=== PATIENT | male | born 1980 | race Caucasian/White ===

== ENCOUNTER 2018-06-14 08:56 | Outpatient (CLI) | payer OTHER ==
--- NOTE | 2018-06-14 10:21 | RAD ---
RIGHT FOOT THREE VIEWS: History: Arthritis. Comparison: None. FINDINGS: There is no acute fracture or malalignment. Soft tissues are mildly swollen. No significant degenerat anjel disease. IMPRESSION: Normal exam. POS: [facility]
== END 2018-06-14 08:57 | disposition home or self-care (01) ==
LOC: BICRAD 08:56
PROVIDERS: ATTEND Orthopaedic Surgery
DX: M19.071 Primary osteoarthritis, right ankle and foot (principal)

== ENCOUNTER 2019-06-07 20:30 | Outpatient (CLI) | payer OTHER | END 2019-06-07 20:31 | disposition home or self-care (01) | LOC: SLEEPLAB 20:30 | PROVIDERS: ATTEND Internal Medicine Critical Care Medicine | DX: G47.33 Obstructive sleep apnea (adult) (pediatric) (principal); R53.83 Other fatigue; I10 Essential (primary) hypertension | CPT/HCPCS: 95810 ==

== ENCOUNTER 2019-08-18 22:19 | Emergency (ER) | payer OTHER ==
[2019-08-18 23:41] LABS: HIV (1/2) Antibody/Antigen Non-Reactive (NonReactive); HIV 1/2 INDEX 0.15 S/CO (<1.00); Hep C IgG Ab Non-Reactive (NonReactive); Hep C Index 0.15 S/CO (0-0.79)
[2019-08-19 00:19] LABS: HBSAB Concentration 3143.54 mIU/mL; Hep B Surf AB Reactive (NonReactive)
== END 2019-08-18 23:15 | disposition home or self-care (01) ==
LOC: ERS 22:19
DX: Z77.21 Contact with and (suspected) exposure to potentially hazardous body fluids (principal); E78.5 Hyperlipidemia, unspecified; E78.00 Pure hypercholesterolemia, unspecified
CPT/HCPCS: 36415; 86706; 86803; 87389; 99283

== ENCOUNTER 2020-11-10 03:47 | Emergency (ER) | payer BC, OTHER ==
[2020-11-10 05:29] LABS: HIV (1/2) Antibody/Antigen Non-Reactive (NonReactive); HIV 1/2 INDEX 0.22 S/CO (<1.00); Hep C IgG Ab Non-Reactive (NonReactive)
[2020-11-10 06:38] LABS: Hep B Surf AB Reactive (NonReactive)
== END 2020-11-10 04:51 | disposition home or self-care (01) ==
LOC: ERS 03:47
DX: Z77.21 Contact with and (suspected) exposure to potentially hazardous body fluids (principal); E78.5 Hyperlipidemia, unspecified; E78.00 Pure hypercholesterolemia, unspecified
CPT/HCPCS: 36415; 86706; 86803; 87389; 99283

== ENCOUNTER 2023-03-25 08:31 | Outpatient (CLI) | payer OTHER | END 2023-03-25 08:32 | disposition home or self-care (01) | LOC: BICMRI 08:31 | PROVIDERS: ATTEND Nurse Practitioner Family | DX: S49.92XD Unspecified injury of left shoulder and upper arm, subsequent encounter (principal); M75.112 Incomplete rotator cuff tear or rupture of left shoulder, not specified as traumatic; M19.012 Primary osteoarthritis, left shoulder; S46.212D Strain of muscle, fascia and tendon of other parts of biceps, left arm, subsequent encounter ==

== ENCOUNTER 2023-05-05 08:04 | Outpatient (CLI) | payer BC ==
[2023-05-05 09:18] LABS: #Basophils 0.1 10x3/uL (0.0-0.2); #Eosinphils 0.4 10x3/uL (0.0-0.5); #Monocytes 0.6 10x3/uL (0.0-1.1); #Neutrophils 3.8 10x3/uL (1.5-8.4); %Eosinophils 4.8 % (0.0-6.0); %Lymphocytes 32.7 % (18.0-47.0); %Monocytes 8.6 % (0.0-10.0); %Neutrophils 52.5 % (40.0-75.0); Hematocrit 44.8 % (38.8-50.0); Hemoglobin 15.3 g/dL (13.5-17.5); Mean Corpuscular HGB CONC 34.2 g/dL (32.0-36.0); Mean Corpuscular Hemoglobin 28.5 pg (27.0-33.0); Mean Corpuscular Volume 83.4 fl (81.2-95.1); Mean Platelet Volume 9.8 fl (7.4-10.4); Platelet Count 232 10x3/uL (150-450); RBC Distribution Width 12.7 % (11.5-14.5); Red Blood Cell (RBC) Count 5.37 10x6/uL (4.32-5.72); White Blood Cell (WBC) Count 7.3 10x3/uL (3.5-10.5)
[2023-05-05 09:31] LABS: Anion Gap 12 mmol/L (10-20); BUN (Urea Nitrogen) 13 mg/dL (8.9-20.6); Calc. Creatinine Clearance 0 mL/min (70-130); Calcium 9.8 mg/dL (7.8-10.44); Carbon Dioxide 26 mmol/L (22-29); Chloride 105 mmol/L (98-107); Estimated GFR 93; Glucose 119 mg/dL (70-105); Potassium 4.1 mmol/L (3.5-5.1); Sodium 139 mmol/L (136-145)
== END 2023-05-05 08:05 | disposition home or self-care (01) ==
LOC: LABBT 08:04
PROVIDERS: ATTEND Orthopaedic Surgery
DX: Z01.812 Encounter for preprocedural laboratory examination (principal); S43.432A Superior glenoid labrum lesion of left shoulder, initial encounter
CPT/HCPCS: 80048; 85025

== ENCOUNTER 2023-05-08 09:09 | Day surgery (SDC) | payer OTHER ==
[2023-05-05 08:42] VITALS: BMI 28.1
[2023-05-08] MEDS ORDERED: fentaNYL 50 mcg/mL 1 mL Vial ONE ×2 (10:50→12:45)
[2023-05-08] MEDS ORDERED: EPINEPHrine 1 MG/ML AMP ONE ×2 (10:50→11:56)
[2023-05-08] MEDS ORDERED: Lidocaine 1% (PF) 30 ML VIAL ONE (10:50)
[2023-05-08] MEDS ORDERED: Midazolam HCl 2 mg/2 ml Vial ONE (10:50)
[2023-05-08] MEDS ORDERED: Ropivacaine 0.5% HCl/PF (150 MG/30 ML VIAL) ONE (10:50)
[2023-05-08] MEDS ORDERED: Ropivacaine 0.2% HCl/PF 20 ML ONE (10:50)
[2023-05-08] MEDS ORDERED: Bupivacaine 0.25% HCL 30 ML VIAL ONE (11:56)
[2023-05-08] MEDS ORDERED: Acetaminophen 500 MG TAB ONE (11:57)
[2023-05-08] MEDS ORDERED: fentaNYL 50 mcg/mL 1 mL Vial SLOW IVP PRN (12:22)
[2023-05-08] MEDS ORDERED: CEFAZOLIN 2 GM VIAL ONE (12:24)
[2023-05-08] MEDS ORDERED: Sodium Chloride 0.9% 100 ML ONE (12:24)
[2023-05-08] MEDS ORDERED: Zolpidem Tartrate 5 MG TAB PO PRN (12:30)
[2023-05-08] MEDS ORDERED: traMADol HCl 50 MG TAB PO PRN ×2 (12:30)
[2023-05-08] MEDS ORDERED: HYDROcodone/Acetaminophen 10/325 mg Tablet PO PRN ×2 (12:30)
[2023-05-08] MEDS ORDERED: Ondansetron PF 4 MG/2 ML Vial IVP PRN (12:30)
[2023-05-08] MEDS ORDERED: Promethazine HCl 25 MG/ML VIAL IM PRN (12:30)
[2023-05-08] MEDS ORDERED: Ropivacaine 0.2% 550 ML 550 ML NERVE BLCK SCH (12:30)
[2023-05-08] MEDS ORDERED: Ketorolac Tromethamine 30 MG/ML VIAL ONE (12:45)
[2023-05-08] MEDS ORDERED: Ondansetron PF 4 MG/2 ML Vial ONE (12:45)
[2023-05-08] MEDS ORDERED: Dexamethasone 20 MG/5 ML VIAL ONE (12:45)
[2023-05-08] MEDS ORDERED: Esmolol 100 MG/10 ML VIAL ONE (12:45)
[2023-05-08] MEDS ORDERED: PROPOFOL 200 MG/20 ML VIAL ONE (12:45)
[2023-05-08] MEDS ORDERED: Ketorolac Tromethamine 30 MG/ML VIAL IVP SCH (18:00)
== END 2023-05-08 16:00 | disposition home or self-care (01) ==
LOC: SDC 09:09
PROVIDERS: ATTEND Orthopaedic Surgery
DX: S43.432A Superior glenoid labrum lesion of left shoulder, initial encounter (principal); E78.00 Pure hypercholesterolemia, unspecified; Z98.890 Other specified postprocedural states; X58.XXXA Exposure to other specified factors, initial encounter
CPT/HCPCS: A4306; C1713; J0171; J1100; J1885; J2001; J2250; J2405; J2704; J2795; J3010; J3490; S0020

== ENCOUNTER 2025-08-01 09:03 | Outpatient (CLI) | payer BC | END 2025-08-01 09:04 | disposition home or self-care (01) | LOC: ULT 09:03 | PROVIDERS: ATTEND Family Medicine | DX: R19.04 Left lower quadrant abdominal swelling, mass and lump (principal); D17.5 Benign lipomatous neoplasm of intra-abdominal organs | CPT/HCPCS: 76700; 93976 ==